=== PATIENT | female | born 1955 | race Two or more races ===

== ENCOUNTER 2017-11-26 08:00 | Outpatient (RCR) | payer MEDICARE, MEDICAID ==
[~2017-11-26 08:00] MED LIST: BUPROPION150 MG PO; CLINDAMYCIN300 M1 PO; DIPHENHYDRAMINE50 MG PO; ENALAPRIL2.5 MG PO; FLEXERIL10 MG PO; GAMMA GLOBULIN SC; IMITREX100 M1 PO; KEPPRA1000 MG PO; MOTRIN800 MG PO; NORCO1 TA1 PO; PENICILLN VK500 MG PO; PHENERGAN25 MG/TAB PO; RANITIDINE150 M1 PO; TOPAMAX100 MG PO; ULTRAM50 M1 PO; ULTRAM50 MG PO; XANAX0.25 MG PO; [UNRECOGNIZED DRUG - CODE] IV
[2017-11-26] MEDS ORDERED: HYQVIA (12:43)
[2017-11-26] MEDS ORDERED: BENADRYL 50MG C50 MG PO (12:43)
[2017-11-26] MEDS ORDERED: B121000 MCG (12:44)
[2017-11-26] MEDS ORDERED: FERROUS SULF325 M2 PO (12:44)
[2017-11-26] MEDS ORDERED: ALENDRONATE SOD70 MG PO (12:44)
[2017-11-26] MEDS ORDERED: GABAPENTIN400 M2 PO (12:45)
[2017-11-26] MEDS ORDERED: UNISOM SLEEP50 MG PO (12:46)
[2017-11-26] MEDS ORDERED: RANITIDINE150 M1 PO (12:46)
[2017-11-26] MEDS ORDERED: EQL IBUPROFEN200 MG PO (12:46)
[2017-11-26] MEDS ORDERED: VISION FORMULA1 TAB (12:47)
== END 2017-12-12 14:30 | disposition home or self-care (01) ==
LOC: PT 08:00
PROVIDERS: ATTEND Physician Assistant Medical
DX: M50.30 Other cervical disc degeneration, unspecified cervical region (principal); M54.2 Cervicalgia

== ENCOUNTER → 2017-12-05 | Outpatient (REF) | payer MEDICARE, MEDICAID ==
[~2017-12-05] MED LIST changes: +ALENDRONATE SOD70 MG PO; +B121000 MCG; +BENADRYL 50MG C50 MG PO; +EQL IBUPROFEN200 MG PO; +FERROUS SULF325 M2 PO; +GABAPENTIN400 M2 PO; +HYQVIA; +LYRICA25 MG PO; +UNISOM SLEEP50 MG PO; +VISION FORMULA1 TAB
[2017-12-05 08:35] LABS: HEMATOCRIT 43.7 % (37.0-47.0); HEMOGLOBIN 14.1 g/dl (12.0-16.0); IMMATURE GRANULOCYTES 0.3 % (0.0-5.0); MEAN CELL VOLUME 93.6 fL CALC (80.0-100.0); MEAN CORPUSCULAR HGB 30.2 pG CALC (26.0-32.0); MEAN CORPUSCULAR HGB CONC 32.3 g/L CALC (32.0-36.0); NEUT# 3.52 thou/uL (2.00-7.15); RED BLOOD COUNT 4.67 mill/uL (4.20-5.60); RED CELL DISTRI WIDTH 13.2 % (11.5-15.5)
[2017-12-05 08:50] LABS: ALBUMIN 3.9 g/dL (3.2-5.0); ALKALINE PHOSPHATASE 71 u/l (38-126); ANION GAP 13 (6-22 (CALC)); BILIRUBIN, TOTAL 0.5 mg/dL (0.0-1.4); BUN 18 mg/dL (7-17); BUN/CREATININE RATIO 22 (12-20 (CALC)); CALCULATED LDLCHOLESTEROL 180 mg/dL (62-129 (CALC)); CARBON DIOXIDE 24 mmol/l (22-30); CHLORIDE 111 mmol/l (95-108); CHOLESTEROL HDL RATIO 4.8 (<4.4 (CALC)); CREATININE 0.8 mg/dL (0.5-1.0); GFR > 60 ML/MIN (>=60 (CALC)); GFR FOR AFR.AMER. > 60 ML/MIN (>=60 (CALC)); HDL CHOLESTEROL 54 mg/dL (>=40); POTASSIUM 4.2 mmol/l (3.5-5.1); SGOT/AST 26 u/l (14-36); SODIUM 144 mmol/l (137-146); TOTAL CHOLESTEROL 256 mg/dl (0-199); TOTAL TRIGLYCERIDES 112 mg/dl (30-149); VLDL CHOLESTROL 22 mg/dl (1-41 (CALC))
[2017-12-05 09:22] LABS: TSH, 3RD GENERATION 1.79 uIU/mL (0.47 - 4.68)
== END | disposition home or self-care (01) ==
LOC: LAB 07:40
PROVIDERS: ATTEND Physician Assistant Medical
DX: N06.9 Isolated proteinuria with unspecified morphologic lesion (principal); I10 Essential (primary) hypertension; R73.01 Impaired fasting glucose; E53.8 Deficiency of other specified B group vitamins; M81.0 Age-related osteoporosis without current pathological fracture; F34.1 Dysthymic disorder; D83.9 Common variable immunodeficiency, unspecified

== ENCOUNTER 2017-12-16 18:15 | Emergency (ER) | payer MEDICARE, MEDICAID ==
[~2017-12-16] VITALS: Ht 165.1 cm; Wt 113.6 kg
[~2017-12-16 18:15] MED LIST changes: -LYRICA25 MG PO
[2017-12-16 20:39] LABS: HEMATOCRIT 44.4 % (37.0-47.0); HEMOGLOBIN 14.6 g/dl (12.0-16.0); IMMATURE GRANULOCYTES 0.8 % (0.0-5.0); MEAN CELL VOLUME 94.5 fL CALC (80.0-100.0); MEAN CORPUSCULAR HGB 31.1 pG CALC (26.0-32.0); MEAN CORPUSCULAR HGB CONC 32.9 g/L CALC (32.0-36.0); NEUT# 11.13 thou/uL (2.00-7.15); RED BLOOD COUNT 4.7 mill/uL (4.20-5.60); RED CELL DISTRI WIDTH 13.2 % (11.5-15.5)
[2017-12-16 21:09] LABS: ALBUMIN 4.2 g/dL (3.2-5.0); ALKALINE PHOSPHATASE 92 u/l (38-126); ANION GAP 16 (6-22 (CALC)); BILIRUBIN, TOTAL 0.4 mg/dL (0.0-1.4); BUN 18 mg/dL (7-17); BUN/CREATININE RATIO 22 (12-20 (CALC)); CARBON DIOXIDE 20 mmol/l (22-30); CHLORIDE 111 mmol/l (95-108); CREATININE 0.8 mg/dL (0.5-1.0); GFR > 60 ML/MIN (>=60 (CALC)); GFR FOR AFR.AMER. > 60 ML/MIN (>=60 (CALC)); LIPASE 69 u/l (23-300); POTASSIUM 4.5 mmol/l (3.5-5.1); SODIUM 142 mmol/l (137-146); TOTAL PROTEIN 7.6 g/dL (6.3-8.2)
[2017-12-16 21:10] LABS: SGOT/AST 59 u/l (14-36)
[2017-12-16] MEDS ORDERED: LYRICA25 MG PO (22:22)
[2017-12-16 22:28] LABS: URINE BILIRUBIN - DIPSTICK NEGATIVE (NEGATIVE); URINE BLOOD DIPSTICK NEGATIVE (NEGATIVE); URINE CLARITY CLEAR; URINE COLOR YELLOW; URINE GLUCOSE - DIPSTICK NEGATIVE (NEGATIVE); URINE KETONE NEGATIVE (NEGATIVE); URINE LEUK ESTERASE TRACE (NEGATIVE); URINE NITRITE - DIPSTICK NEGATIVE (Negative); URINE PROTEIN - DIPSTICK NEGATIVE (NEG-TRACE); URINE SPECIFIC GRAVITY 1.025; URINE UROBILINOGEN - DIPSTICK 0.2 E.U./dL (0.2)
[2017-12-16 22:33] LABS: BARBITURATES NEGATIVE (NEGATIVE); COCAINE NEGATIVE (NEGATIVE); METHADONE NEGATIVE (NEGATIVE); OXCYCODONE NEGATIVE (NEGATIVE); TETRAHYDROCANNABIONOL NEGATIVE (NEGATIVE); TRICYLIC ANTIDEPRESSANTS POSITIVE (NEGATIVE)
[2017-12-16 23:26] VITALS: BP 107/64
== END 2017-12-16 22:55 ==
LOC: ED 18:15
PROVIDERS: Emergency Medicine; Family Medicine
DX: S42.301A Unspecified fracture of shaft of humerus, right arm, initial encounter for closed fracture (principal); S22.41XA Multiple fractures of ribs, right side, initial encounter for closed fracture; S52.502A Unspecified fracture of the lower end of left radius, initial encounter for closed fracture; S52.612A Displaced fracture of left ulna styloid process, initial encounter for closed fracture; S32.020A Wedge compression fracture of second lumbar vertebra, initial encounter for closed fracture; S22.080A Wedge compression fracture of T11-T12 vertebra, initial encounter for closed fracture; S06.9X9A Unspecified intracranial injury with loss of consciousness of unspecified duration, initial encounter; M19.90 Unspecified osteoarthritis, unspecified site; G40.909 Epilepsy, unspecified, not intractable, without status epilepticus; M06.9 Rheumatoid arthritis, unspecified; W01.0XXA Fall on same level from slipping, tripping and stumbling without subsequent striking against object, initial encounter; Y92.009 Unspecified place in unspecified non-institutional (private) residence as the place of occurrence of the external cause

== ENCOUNTER 2018-04-22 08:00 | Outpatient (RCR) | payer MEDICARE, MEDICAID ==
[~2018-04-22 08:00] MED LIST changes: +LYRICA25 MG PO
== END 2018-05-14 18:36 | disposition home or self-care (01) ==
LOC: OT 08:00
PROVIDERS: ATTEND Orthopaedic Surgery
DX: S42.291D Other displaced fracture of upper end of right humerus, subsequent encounter for fracture with routine healing (principal)

== ENCOUNTER 2018-04-22 09:00 | Outpatient (RCR) | payer MEDICARE, MEDICAID | END 2018-04-22 10:00 | disposition home or self-care (01) | LOC: PT 09:00 | PROVIDERS: ATTEND Orthopaedic Surgery | DX: S42.291D Other displaced fracture of upper end of right humerus, subsequent encounter for fracture with routine healing (principal) ==

== ENCOUNTER → 2018-05-05 | Outpatient (REF) | payer MEDICARE, MEDICAID | END | disposition home or self-care (01) | LOC: DI 07:26 | PROVIDERS: ATTEND Nurse Practitioner Family | DX: M25.552 Pain in left hip (principal); M54.16 Radiculopathy, lumbar region; Z98.890 Other specified postprocedural states; M48.55XS Collapsed vertebra, not elsewhere classified, thoracolumbar region, sequela of fracture ==

== ENCOUNTER 2018-07-30 18:50 | Emergency (ER) | payer MEDICARE ==
[~2018-07-30] VITALS: Ht 165.1 cm; Wt 118.2 kg
[2018-07-31 02:15] VITALS: BP 172/76
== END 2018-07-31 02:15 | disposition short-term general hospital (02) ==
LOC: ED 18:50
PROC: 0T9B70Z Drainage of Bladder with Drainage Device, Via Natural or Artificial Opening (ICD-10-PCS; principal; 2018-07-31)
DX: S22.42XA Multiple fractures of ribs, left side, initial encounter for closed fracture (principal); S42.212A Unspecified displaced fracture of surgical neck of left humerus, initial encounter for closed fracture; S13.9XXA Sprain of joints and ligaments of unspecified parts of neck, initial encounter; W01.198A Fall on same level from slipping, tripping and stumbling with subsequent striking against other object, initial encounter; Y93.01 Activity, walking, marching and hiking; Y92.480 Sidewalk as the place of occurrence of the external cause